=== PATIENT | female | born 1960 | race Caucasian/White ===

== ENCOUNTER 2023-11-03 17:36 | Emergency (ER) | payer SELFPAY ==
[2023-11-03] MEDS ORDERED: Ondansetron PF 4 MG/2 ML Vial ONE (17:55)
[2023-11-03 18:06] LABS: #Basophils 0.1 thou/uL (0.0-0.2); #Eosinphils 0.2 thou/uL (0.0-0.7); #Lymphocytes 2.9 thou/uL (1.20-3.40); #Monocytes 0.6 thou/uL (0.11-0.59); #Neutrophils 3.5 thou/uL (1.40-6.50); %Basophils 0.9 % (0.0-1.0); %Eosinophils 2.9 % (0.0-10.0); %Lymphocytes 39.8 % (21.0-51.0); %Monocytes 8.3 % (0.0-10.0); %Neutrophils 48.1 % (42.0-75.0); Hematocrit 40.9 % (36.0-47.0); Hemoglobin 13.8 g/dL (12.0-16.0); Mean Corpuscular HGB CONC 33.7 g/dL (32.0-36.0); Mean Corpuscular Hemoglobin 33.8 pg (27.0-31.0); Mean Platelet Volume 7.4 fL (7.4-10.4); Platelet Count 210 10x3/uL (130-400); RBC Distribution Width 13.5 % (11.5-14.5); Red Blood Cell (RBC) Count 4.07 mill/uL (4.20-5.40); White Blood Cell (WBC) Count 7.4 10x3/uL (4.8-10.8)
[2023-11-03 18:17] LABS: Acetaminophen Less than 10 mcg/mL (10.0-30.0); Alcohol Greater than 475.0 mg/dL (Less than 10); Lipase 47 U/L (8-78); Salicylate Less than 8.0 mg/dL (15.0-30.0)
[2023-11-03 18:19] LABS: ALT (SGPT) 21 U/L (8-55); AST (SGOT) 28 U/L (5-34); Albumin 4.1 g/dL (3.4-4.8); Alkaline Phosphatase 85 U/L (40-110); Anion Gap 17 mmol/L (10-20); BUN (Urea Nitrogen) 4 mg/dL (9.8-20.1); Bilirubin, Total 0.2 mg/dL (0.2-1.2); Calc. Creatinine Clearance 0 mL/min (70-130); Calcium 8.5 mg/dL (7.8-10.44); Carbon Dioxide 20 mmol/L (23-31); Chloride 107 mmol/L (98-107); Estimated GFR 99; Globulin 3.2 g/dL (2.4-3.5); Glucose 97 mg/dL (80-115); Potassium 3.4 mmol/L (3.5-5.1); Protein, Total 7.3 g/dL (5.8-8.1); Sodium 141 mmol/L (136-145)
== END 2023-11-03 21:34 | disposition home or self-care (01) ==
LOC: EEVIPCON 17:36 → BURERS 17:36
DX: F10.129 Alcohol abuse with intoxication, unspecified (principal)
CPT/HCPCS: 36416; 80053; 80307; 82140; 83605; 83690; 85025; 96374; J2405